=== PATIENT | female | born 1945 | race Caucasian/White ===

== ENCOUNTER 2020-07-04 11:28 | Emergency (ER) | payer MEDICARE, OTHER ==
--- NOTE | 2020-07-04 11:58 | XRAY Report ---
PROCEDURE: Chest 1 View X-Ray INDICATIONS: Chest Pain TECHNIQUE: One view of the chest was acquired. COMPARISON: None FINDINGS: Surgical changes and devices: Postoperative change of the cervical spine can be seen. Lungs and pleura: No pleural effusions or pneumothorax. Lungs are clear. Mediastinum: Mediastinal contours appear normal. Heart size is normal. Bones and chest wall: No suspicious bony lesions. Age-appropriate degenerative changes are seen. Overlying soft tissues appear unremarkable. IMPRESSION: No acute cardiopulmonary process is seen. Postoperative and degenerative changes are seen. Reviewed by: Ramirez Nguyen MD on 07/04/2020 10:56 AM ANGELA Approved by: Ramirez Nguyen MD on 07/04/2020 10:56 AM ANGELA Station ID: [id number]
[2020-07-04 12:10] LABS: BASOPHILS # (AUTO) 0.1 10^3/uL (0.0-0.1); BASOPHILS % (AUTO) 0.5 %; EOSINOPHILS # (AUTO) 0.2 10^3/uL (0.0-0.7); EOSINOPHILS % (AUTO) 1.6 %; HCT - HEMATOCRIT 32.6 % (37.0-47.0); HGB - HEMOGLOBIN 10.3 g/dL (12.0-16.0); LYMPHOCYTES # (AUTO) 1.3 10^3/uL (1.5-3.5); LYMPHOCYTES % (AUTO) 11.9 %; MEAN CORPUSCULAR HEMOGLOBIN 31.8 pg (27.0-31.0); MEAN CORPUSCULAR HGB CONC 31.6 g/dL (32.0-36.0); MEAN CORPUSCULAR VOLUME 100.6 fL (81.0-99.0); MEAN PLATELET VOLUME 9.9 fL (7.9-10.8); MONOCYTES # (AUTO) 0.5 10^3/uL (0.0-1.0); MONOCYTES % (AUTO) 4.7 %; NEUTROPHILS # (AUTO) 8.6 10^3/uL (1.5-6.6); NEUTROPHILS % (AUTO) 81.1 %; PLT - PLATELET COUNT 379 10^3/uL (130-450); RED BLOOD COUNT 3.24 10^6/uL (4.20-5.40); RED CELL DISTRIBUTION WIDTH 12.2 % (12.0-15.0); WHITE BLOOD COUNT 10.6 x10^3/uL (4.8-10.8)
[2020-07-04 12:32] LABS: ALBUMIN 4.2 g/dL (3.2-5.5); ALBUMIN/GLOBULIN RATIO 1.1 (1.0-2.2); BILIRUBIN,TOTAL 0.6 mg/dL (0.2-1.0); CALCIUM 10.9 mg/dL (8.5-10.3); CREATININE 1.1 mg/dL (0.4-1.0); POTASSIUM 3.9 mmol/L (3.5-5.0); TOTAL PROTEIN 8.1 g/dL (6.7-8.2)
[2020-07-04] MEDS ORDERED: ASPIRIN 325 MG TABLET PO STA (13:02)
--- NOTE | 2020-07-04 15:01 | ED Physician Documentation ---
History of Present Illness - Stated complaint Stated Complaint: CHEST PX - Chief complaint Chief Complaint: Cardiac - History obtained from History obtained from: Patient - Additonal information Additional information: 74-year-old woman with past medical history of high blood pressure, hyperlipidemia, vascular dementia, mild CKD presents with midsternal chest pain intermittent for the past couple days. Her reports that she was weak and fatigued couple days ago and 2 nights ago she had severe chest pain, Rating to left arm and neck, associated with nausea and diaphoresis. It waned and then returned today. currently mild. 5 years ago she had a nuclear stress test that was negative. They moved from [place] just recently where she saw a rock dust sprayer. Review of Systems Ten Systems: 10 systems reviewed and negative Constitutional: denies: Fever, Chills Cardiac: reports: Chest pain / pressure Respiratory: denies: Dyspnea, Cough GI: reports: Nausea PD PAST MEDICAL HISTORY - Past Medical History Past Medical History: Yes Cardiovascular: Hypertension, High cholesterol Neuro: Dementia Musculoskeletal: Chronic back pain - Past Surgical History Past Surgical History: Yes Ortho: Spine surgery - Present Medications Home Medications: Ambulatory Orders Medication Instructions Recorded Confirmed Ezetimibe [Zetia] 10 mg DAILY 07/04/20 07/04/20 HYDROcod/ACETAM 5/325 [[place] 5/325] 1 tab TID 07/04/20 07/04/20 Isosorbide Mononitrate ER [Imdur] 30 mg DAILY 07/04/20 07/04/20 Lisinopril [Prinivil] 10 mg PO DAILY 07/04/20 07/04/20 Simvastatin [Zocor] 40 mg DAILY 07/04/20 07/04/20 amLODIPine [Norvasc] 5 mg DAILY 07/04/20 07/04/20 - Allergies Allergies/Adverse Reactions: Allergies Allergy/AdvReac Type Severity Reaction Status Date / Time No Known Drug Allergies Allergy Verified 07/04/20 11:39 - Social History Does the pt smoke?: No Smoking Status: Never smoker Does the pt drink ETOH?: No Does the pt have substance abuse?: No PD ED PE NORMAL - Vitals Vital signs reviewed: Yes - General General: Alert and oriented X 3, No acute distress, Well developed/nourished - HEENT HEENT: Atraumatic, PERRL, EOMI - Neck Neck: Supple, no meningeal sign - Cardiac Cardiac: RRR - Respiratory Respiratory: No respiratory distress, Clear bilaterally - Abdomen Abdomen: Non tender, Non distended - Female Female : Deferred - Rectal Rectal: Deferred - Derm Derm: Normal color, Warm and dry - Extremities Extremities: No deformity - Neuro Neuro: Alert and oriented X 3 - Psych Psych: Normal mood, Normal affect Results - Vitals Vitals: Vital Signs - 24 hr 07/04/20 07/04/20 11:35 14:20 Temperature 36.6 C Heart Rate 82 73 Respiratory 16 16 Rate Blood Pressure 168/74 H 145/100 H O2 Saturation 97 97 Oxygen O2 Source Room air - Labs Labs: Laboratory Tests 07/04/20 07/04/20 07/04/20 11:57 11:57 11:57 WBC 10.6 RBC 3.24 L Hgb 10.3 L Hct 32.6 L MCV 100.6 H MCH 31.8 H MCHC 31.6 L RDW 12.2 Plt Count 379 MPV 9.9 Neut # (Auto) 8.6 H Lymph # (Auto) 1.3 L [place] # (Auto) 0.5 Eos # (Auto) 0.2 Baso # (Auto) 0.1 Absolute Nucleated RBC 0.00 Nucleated RBC % 0.0 Sodium 142 Potassium 3.9 Chloride 100 L Carbon Dioxide 28 Anion Gap 14.0 H BUN 25 H Creatinine 1.1 H Estimated GFR (MDRD) 48 L Glucose 112 H Calcium 10.9 H Total Bilirubin 0.6 AST 22 ALT 21 Alkaline Phosphatase 87 Troponin I High Sens 6.6 Total Protein 8.1 Albumin 4.2 Globulin 3.9 Albumin/Globulin Ratio 1.1 Lipase 33 07/04/20 13:26 WBC RBC Hgb Hct MCV MCH MCHC RDW Plt Count MPV Neut # (Auto) Lymph # (Auto) [place] # (Auto) Eos # (Auto) Baso # (Auto) Absolute Nucleated RBC Nucleated RBC % Sodium Potassium Chloride Carbon Dioxide Anion Gap BUN Creatinine Estimated GFR (MDRD) Glucose Calcium Total Bilirubin AST ALT Alkaline Phosphatase Troponin I High Sens 6.7 Total Protein Albumin Globulin Albumin/Globulin Ratio Lipase PD MEDICAL DECISION MAKING - ED course ED course: d/w Dr Garcia, rock dust sprayer at [facility] who accepts the patient in transfer for stress testing. will d/w hospitalist. Departure - Departure Disposition: 02 Transfer Acute Care Hosp Clinical Impression: Chest pain
[2020-07-04 16:40] LABS: B. PARAPERTUSSIS- RESP PCR PAN NOT DETECTED; B. PERTUSSIS- RESP PCR PANEL NOT DETECTED; C. PNEUMONIAE- RESP PCR PANEL NOT DETECTED; CORONAVIRUS 229E-RESP PCR NOT DETECTED; CORONAVIRUS HKU1-RESP PCR NOT DETECTED; CORONAVIRUS NL63-RESP PCR NOT DETECTED; CORONAVIRUS OC43-RESP PCR NOT DETECTED; HUMAN METAPNEUMOVIRUS NOT DETECTED; INFLUENZA A- RESP PCR PANEL NOT DETECTED; INFLUENZA B - RESP PCR PANEL NOT DETECTED; M. PNEUMONIAE- RESP PCR PANEL NOT DETECTED; PARAINFLUENZA VIRUS 1 NOT DETECTED; PARAINFLUENZA VIRUS 2 NOT DETECTED; PARAINFLUENZA VIRUS 3 NOT DETECTED; PARAINFLUENZA VIRUS 4 NOT DETECTED; RHINOVIRUS/ENTEROVIRUS NOT DETECTED; RSV- RESP PCR PANEL NOT DETECTED; SARS-CoV-2 -RESP PCR PANEL NOT DETECTED
[2020-07-04 17:57] VITALS: BP 127/89
== END 2020-07-04 18:32 | disposition short-term general hospital (02) ==
LOC: ED 11:28
DX: R07.89 Other chest pain (principal); M54.2 Cervicalgia; R53.1 Weakness; Z20.822 Contact with and (suspected) exposure to COVID-19; I12.9 Hypertensive chronic kidney disease with stage 1 through stage 4 chronic kidney disease, or unspecified chronic kidney disease; N18.9 Chronic kidney disease, unspecified; E78.5 Hyperlipidemia, unspecified; I44.4 Left anterior fascicular block; F01.50 Vascular dementia, unspecified severity, without behavioral disturbance, psychotic disturbance, mood disturbance, and anxiety
CPT/HCPCS: 36415; 71045; 80053; 83690; 84484; 85025; 87631; 93005; 99284; 99285; A9270; 0202U

== ENCOUNTER 2020-07-04 18:30 | Outpatient (CLI) | payer MEDICARE, OTHER | END 2020-07-04 18:31 | disposition short-term general hospital (02) | LOC: EMS 18:30 | PROVIDERS: ATTEND Emergency Medicine | DX: R07.9 Chest pain, unspecified (principal) | CPT/HCPCS: A0425; A0428 ==

== ENCOUNTER 2020-07-14 19:09 | Outpatient (CLI) | payer MEDICARE, OTHER | END 2020-07-14 19:10 | disposition critical access hospital (66) | LOC: EMS 19:09 | DX: R10.10 Upper abdominal pain, unspecified (principal); R11.0 Nausea | CPT/HCPCS: A0425; A0429 ==

== ENCOUNTER 2020-07-14 19:24 | Inpatient (IN) | payer MEDICARE, OTHER ==
[2020-07-14 19:42] LABS: BASOPHILS # (AUTO) 0.1 10^3/uL (0.0-0.1); BASOPHILS % (AUTO) 0.5 %; EOSINOPHILS # (AUTO) 0.1 10^3/uL (0.0-0.7); EOSINOPHILS % (AUTO) 1.5 %; HCT - HEMATOCRIT 23.3 % (37.0-47.0); HGB - HEMOGLOBIN 7.4 g/dL (12.0-16.0); LYMPHOCYTES # (AUTO) 1.3 10^3/uL (1.5-3.5); LYMPHOCYTES % (AUTO) 13.5 %; MEAN CORPUSCULAR HEMOGLOBIN 31.8 pg (27.0-31.0); MEAN CORPUSCULAR HGB CONC 31.8 g/dL (32.0-36.0); MEAN PLATELET VOLUME 9.8 fL (7.9-10.8); MONOCYTES # (AUTO) 0.7 10^3/uL (0.0-1.0); MONOCYTES % (AUTO) 6.8 %; NEUTROPHILS # (AUTO) 7.5 10^3/uL (1.5-6.6); NEUTROPHILS % (AUTO) 77.2 %; PLT - PLATELET COUNT 506 10^3/uL (130-450); RED BLOOD COUNT 2.33 10^6/uL (4.20-5.40); RED CELL DISTRIBUTION WIDTH 13.3 % (12.0-15.0); WHITE BLOOD COUNT 9.7 x10^3/uL (4.8-10.8)
[2020-07-14 19:57] LABS: ALBUMIN 3.7 g/dL (3.2-5.5); BILIRUBIN,TOTAL 0.3 mg/dL (0.2-1.0); CALCIUM 9.9 mg/dL (8.5-10.3); CREATININE 0.9 mg/dL (0.4-1.0); POTASSIUM 4.1 mmol/L (3.5-5.0); TOTAL PROTEIN 7.3 g/dL (6.7-8.2)
--- NOTE | 2020-07-14 20:05 | ED Physician Documentation ---
PD HPI ABD PAIN - Stated complaint Stated Complaint: ABD PX - Chief complaint Chief Complaint: Abd Pain - History obtained from History obtained from: Patient, EMS - History of Present Illness Timing - onset: How many days ago (several) Timing - duration: Days (several) Pain level max: 9 Pain level now: 9 Location: RUQ, Epigastric, LUQ Associated symptoms: Nausea, Vomiting. No: Hematemesis, Diarrhea, Constipation, Melena, Hematochezia, Dysuria, Hematuria, Chest pain, Dizzy Recently seen: Emergency Dept, Admitted (for chest pain) - Additional information Additional information: Is a 74-year-old female with a past medical history of dementia who presents to the emergency department with several days of abdominal pain per EMS. They report that family stated it worsened tonight. She had vomiting tonight as well. She rates the pain as a 9 out of 10. Unable to describe the pain any further including the character of the pain. She does point to her epigastric and right upper quadrant and left upper quadrant area as the site of the pain. Unable to tell me if it radiates or not. Nothing makes it better or worse. No hematemesis, diarrhea or constipation. She does not know if there has been any b lood in her stool or not. She was recently admitted to [facility] after being transferred here for chest pain about 10 days ago. Review of Systems Unable to obtain: Dementia Constitutional: denies: Fever GI: reports: Vomiting. denies: Diarrhea Skin: denies: Rash Musculoskeletal: denies: Neck pain, Back pain Neurologic: denies: Headache PD PAST MEDICAL HISTORY - Past Medical History Past Medical History: Yes Cardiovascular: Hypertension, High cholesterol Neuro: Dementia Musculoskeletal: Chronic back pain - Past Surgical History Past Surgical History: Yes Ortho: Spine surgery - Present Medications Home Medications: Ambulatory Orders Medication Instructions Recorded Confirmed Ezetimibe [Zetia] 10 mg DAILY 07/04/20 07/14/20 HYDROcod/ACETAM 5/325 [[facility] 5/325] 1 tab TID 07/04/20 07/14/20 Isosorbide Mononitrate ER [Imdur] 30 mg DAILY 07/04/20 07/14/20 Lisinopril [Prinivil] 10 mg PO DAILY 07/04/20 07/14/20 Simvastatin [Zocor] 40 mg DAILY 07/04/20 07/14/20 amLODIPine [Norvasc] 5 mg DAILY 07/04/20 07/14/20 Metoprolol Succinate [Toprol Xl] 25 mg PO DAILY 07/14/20 07/14/20 - Allergies Allergies/Adverse Reactions: Allergies Allergy/AdvReac Type Severity Reaction Status Date / Time No Known Drug Allergies Allergy Verified 07/14/20 19:29 - Social History Does the pt smoke?: No Smoking Status: Never smoker Does the pt drink ETOH?: No Does the pt have substance abuse?: No - Immunizations Immunizations are current?: Yes PD ED PE NORMAL - Vitals Vital signs reviewed: Yes - General General: Other (alert, pleasant, oriented to person only) - HEENT HEENT: Moist mucous membranes - Neck Neck: Supple, no meningeal sign - Cardiac Cardiac: RRR, Strong equal pulses - Respiratory Respiratory: No respiratory distress, Clear bilaterally - Abdomen Abdomen: Soft, Other (TTP RUQ, + junior's sign.) - Back Back: No CVA TTP, No spinal TTP - Derm Derm: Warm and dry - Extremities Extremities: No calf tenderness / cord - Neuro Neuro: Other (alert, pleasant) Results - Vitals Vitals: Vital Signs - 24 hr 07/14/20 07/14/20 07/14/20 19:29 19:31 20:53 Temperature 37.1 C 37.1 C 37.1 C Heart Rate 77 77 91 Respiratory 16 16 16 Rate Blood Pressure 117/68 117/68 159/65 H O2 Saturation 100 99 96 Oxygen O2 Source Room air - Labs Labs: Laboratory Tests 07/14/20 07/14/20 07/14/20 19:38 19:38 20:01 WBC 9.7 RBC 2.33 L Hgb 7.4 L Hct 23.3 L MCV 100.0 H MCH 31.8 H MCHC 31.8 L RDW 13.3 Plt Count 506 H MPV 9.8 Neut # (Auto) 7.5 H Lymph # (Auto) 1.3 L [place] # (Auto) 0.7 Eos # (Auto) 0.1 Baso # (Auto) 0.1 Absolute Nucleated RBC 0.00 Nucleated RBC % 0.0 Sodium 140 Potassium 4.1 Chloride 101 Carbon Dioxide 27 Anion Gap 12.0 BUN 23 H Creatinine 0.9 Estimated GFR (MDRD) 61 L Glucose 117 H Calcium 9.9 Total Bilirubin 0.3 AST 18 ALT 21 Alkaline Phosphatase 78 Total Protein 7.3 Albumin 3.7 Globulin 3.6 Albumin/Globulin Ratio 1.0 Lipase 150 H Urine Color YELLOW Urine Clarity HAZY Urine pH 7.0 Ur Specific [place] 1.015 Urine Protein NEGATIVE Urine Glucose (UA) NEGATIVE Urine Ketones NEGATIVE Urine Occult Blood NEGATIVE Urine Nitrite NEGATIVE Urine Bilirubin NEGATIVE Urine Urobilinogen 0.2 (NORMAL) Ur Leukocyte Esterase TRACE H Urine RBC 0-5 Urine WBC 6-10 H Ur Squamous Epith Cells NONE SEEN Amorphous Sediment Few Urine Bacteria Rare Ur Microscopic Review INDICATED Urine Culture Comments INDICATED - Rads (name of study) CT abd/pelvis Radiology: Prelim report reviewed, EMP read contemporaneously PD MEDICAL DECISION MAKING - ED course Complexity details: reviewed results, re-evaluated patient, considered differential, d/w patient ED course: 74-year-old female with acute cholecystitis. She also has a significant drop in her hemoglobin. Rectal exam was performed but no stools in the rectal vault. She was given a dose of Protonix as well as Zosyn. We will admit for acute cholecystitis and anemia. Her records were obtained from [facility] for her recent admission. She had a normal echocardiogram and nuclear medicine stress test at that time. Discussed the case with Dr. Rowland, general surgery who will consult on the patient. Also discussed with Dr. Shoemaker, hospitalist who accepts. The plan will be likely colonoscopy and endoscopy tomorrow with a likely cholecystectomy on . This document was made in part using voice recognition software. While efforts are made to proofread this document, sound alike and grammatical errors may occur. IMPRESSION: 1. Sludge material and stones are seen in dependent portion of gallbladder lumen with gallbladder wall thickening and pericholecystic fluid concerning for acute cholecystitis. No biliary ductal dilatation. 2. Wall thickening involving distal portion of stomach and proximal to mid portion of duodenum adjacent to the inflamed appearing gallbladder most likely represent reactive inflammatory changes. Low-grade gastritis and enteritis cannot be excluded. No other area of abnormal bowel wall thickening. No free fluid of free air. No abscess collection. 3. No renal stone or hydronephrosis. 4. Right lateral abdominal wall defect containing fat only. Departure - Departure Disposition: [facility] DC/Xfer Clinical Impression: Acute cholecystitis Anemia Qualifiers: Anemia type: unspecified type Qualified Code(s): D64.9 - Anemia, unspecified Abdominal pain Qualifiers: Abdominal location: right lower quadrant Qualified Code(s): R10.31 - Right lower quadrant pain Condition: Stable
[2020-07-14] MEDS ORDERED: IOPAMIDOL-300 100 ML VIAL ONE (20:16)
[2020-07-14 20:19] LABS: BILIRUBIN,URINE NEGATIVE (NEGATIVE); GLUCOSE, URINE (UA) NEGATIVE (NEGATIVE); KETONES,URINE (UA) NEGATIVE (NEGATIVE); LEUKOCYTE ESTERASE, URINE TRACE (NEGATIVE); NITRITE,URINE NEGATIVE (NEGATIVE); OCCULT BLOOD,URINE NEGATIVE (NEGATIVE); PROTEIN,URINE NEGATIVE (NEGATIVE); UROBILINOGEN,URINE 0.2 (NORMAL) E.U./dL (NORMAL)
[2020-07-14 20:21] LABS: CLARITY,URINE HAZY (CLEAR)
[2020-07-14 20:31] LABS: RBC,URINE 0-5 /HPF (0-5); SQUAMOUS EPITHELIAL CELL,UR NONE SEEN (<= Few)
[2020-07-14 20:32] LABS: AMORPHOUS SEDIMENT,UR Few /LPF; BACTERIA,URINE Rare /HPF (None Seen)
[2020-07-14] MEDS ORDERED: IOPAMIDOL-300 100 ML VIAL IVP ONE (20:54)
--- NOTE | 2020-07-14 21:13 | CT Report ---
PROCEDURE: Abdomen/Pelvis W INDICATIONS: abdominal pain, dementia, vomiting CONTRAST: IV CONTRAST: Isovue 300 ml: 100 PO CONTRAST: *NO PO CONTRAST TECHNIQUE: After the administration of IV contrast, 5 mm thick sections acquired from the diaphragms to the symp hysis. 5 mm thick coronal and sagittal reformats were acquired. For radiation dose reduction, the f ollowing was used: automated exposure control, adjustment of mA and/or kV according to patient size. COMPARISON: None. FINDINGS: Image quality: Excellent. ABDOMEN: Lung bases: Bibasilar dependent atelectasis is seen. Heart size is normal. Solid organs: Liver and spleen are normal in size and enhancement. Sludge material and stones are se en in dependent portion of gallbladder lumen. There is suggestion of pericholecystic fluid and mild g allbladder wall thickening. Biliary system is non dilated. Pancreas enhances normally. No adrenal n odules. Kidneys demonstrate normal size and enhancement, without hydronephrosis. Peritoneum and bowel: There is no bowel obstruction. There is suggestion of distal gastric wall thick ening and wall thickening involving proximal to mid portion of duodenum with edema. No other area of abnormal bowel wall thickening. No free fluid of free air. No abscess collection. Nodes and vessels: No retroperitoneal or mesenteric adenopathy by size criteria. Aorta and inferior vena cava are normal in size. Miscellaneous: Right lateral abdominal wall defect is seen containing fat only. PELVIS: Genitourinary: Bladder wall thickness is normal. Miscellaneous: No inguinal hernias or adenopathy. Uterus and bilateral adnexa show no gross abnorma lity. Bones: No suspicious bony lesions. No vertebral body compression fractures. Post fusion changes ar e noted in lumbar spine at L3-L5 levels. Degenerative disc disease throughout lumbar spine is seen. IMPRESSION: 1. Sludge material and stones are seen in dependent portion of gallbladder lumen with gallbladder wal l thickening and pericholecystic fluid concerning for acute cholecystitis. No biliary ductal dilatati on. 2. Wall thickening involving distal portion of stomach and proximal to mid portion of duodenum adjace nt to the inflamed appearing gallbladder most likely represent reactive inflammatory changes. Low-gra de gastritis and enteritis cannot be excluded. No other area of abnormal bowel wall thickening. No fr ee fluid of free air. No abscess collection. 3. No renal stone or hydronephrosis. 4. Right lateral abdominal wall defect containing fat only. Reviewed by: Reynold Tabor MD on 07/14/2020 9:12 PM PDT Approved by: Reynold Tabor MD on 07/14/2020 9:12 PM PDT Station ID: [id number]
[2020-07-14] MEDS ORDERED: PIPERACILLIN/TAZOBACTAM 3.375 GM in SODIUM CHLORIDE 0.9% MINIBAG 100 ML IV STA (21:18)
[2020-07-14] MEDS ORDERED: PANTOPRAZOLE 40 MG VIAL IVP STA (21:19)
[2020-07-14] MEDS ORDERED: ACETAMINOPHEN 325 MG TABLET PO PRN (21:34)
[2020-07-14] MEDS ORDERED: HYDROcod/ACETAM 5/325 MG TABLET PO PRN (21:34)
[2020-07-14] MEDS ORDERED: ONDANSETRON 4 MG/2 ML VIAL IVP PRN (21:34)
[2020-07-14] MEDS ORDERED: SODIUM CHLORIDE 0.9% 1,000 ML IV SCH (22:00)
[2020-07-14 22:03] LABS: B. PARAPERTUSSIS- RESP PCR PAN NOT DETECTED; B. PERTUSSIS- RESP PCR PANEL NOT DETECTED; C. PNEUMONIAE- RESP PCR PANEL NOT DETECTED; CORONAVIRUS 229E-RESP PCR NOT DETECTED; CORONAVIRUS HKU1-RESP PCR NOT DETECTED; CORONAVIRUS NL63-RESP PCR NOT DETECTED; CORONAVIRUS OC43-RESP PCR NOT DETECTED; HUMAN METAPNEUMOVIRUS NOT DETECTED; INFLUENZA A- RESP PCR PANEL NOT DETECTED; INFLUENZA B - RESP PCR PANEL NOT DETECTED; M. PNEUMONIAE- RESP PCR PANEL NOT DETECTED; PARAINFLUENZA VIRUS 1 NOT DETECTED; PARAINFLUENZA VIRUS 2 NOT DETECTED; PARAINFLUENZA VIRUS 3 NOT DETECTED; PARAINFLUENZA VIRUS 4 NOT DETECTED; RHINOVIRUS/ENTEROVIRUS NOT DETECTED; RSV- RESP PCR PANEL NOT DETECTED; SARS-CoV-2 -RESP PCR PANEL NOT DETECTED
[2020-07-14] MEDS ORDERED: HYDROmorphone 1 MG/ML CARPUJECT IVP PRN (22:12)
--- NOTE | 2020-07-14 22:18 | HISTORY & PHYSICAL EXAMINATION ---
Chief Complaint - Chief Complaint Chief Complaint: Abdominal Pain Abdominal Pain HPI - Admitted From Admitted from: ED - History Obtained From Records Reviewed: RN notes reviewed, Old records reviewed History obtained from: Patient Exam limitations: Clinical condition, Other (Mild Dementia) - History of Present Illness Severity at the worst: Moderate Pain Quality: Aching, Other (Patient was not able to specifiy) Context-Pain started w/: Other (Unknown (Limited hx 2/2 dementia)) Duration: Days: (2) Improved with: Other (Unknown) Associated symptoms: Nausea, Vomiting, General Weakness HPI Comment/Other: Lidna is a very pleasant 74-year-old female with mild dementia, and presumably some cardiac history including hypertension and possibly angina based on her medication list, but is unable to provide much history, who is at least able to tell me that she presents to the ED with abdominal pain since the past 2 days. She is unable to characterize the abdominal pain very much in terms of quality, location, exacerbating and alleviating factors, or severity. This is somewhat limited by her dementia. She does however clearly confirm when asked that she has had vomiting though she denies any recollection of coffee-ground emesis, or black. She also denies any melena or bright red blood per rectum. She does not think she is had a fever. She has not had any other associated symptoms. She states this has never happened to her before. ED course: In the emergency department she was evaluated for the symptoms including labs and a CT scan of the abdomen and pelvis that was suggestive of acute cholecystitis with lab work showing mild anemia with hemoglobin of 7.6, with macrocytosis, normal RDW, normal renal function, and no leukocytosis. Her urinalysis is also suggestive of a UTI. Her vital signs were stable in the ED. Upon arrival to examine the patient, she was found to be undergoing abdominal sonography. General surgery had been contacted prior to my involvement, who has kindly agreed to consult on the patient and suggest a probable EGD, colonoscopy, as well as possible laparoscopic cholecystectomy for the acute cholecystitis based on ultrasound results. PMH/PSH - Past Medical History Cardiovascular: positive: Hypertension, High cholesterol Neuro: positive: Dementia Musculoskeletal: positive: Chronic back pain - Past Surgical History Ortho: positive: Spine surgery Neuro: positive: Other (Patient tells me she's had brain surgery, twice, but can't tell me much more about them) Social & Family Hx - Living Situation Living Arrangement: At home (Unclear if she lives at home or in facility) Living Situation: With spouse/s.o. - Social History Does the pt smoke?: No Smoking Status: Never smoker Does the pt drink ETOH?: No Does the pt have substance abuse?: No - Family History Family History Comment/Other: Unable to provide FH Meds/Allgy - Home Medications Home Medications: Ambulatory Orders Medication Instructions Recorded Confirmed Ezetimibe [Zetia] 10 mg DAILY 07/04/20 07/14/20 HYDROcod/ACETAM 5/325 [[place] 5/325] 1 tab TID 07/04/20 07/14/20 Isosorbide Mononitrate ER [Imdur] 30 mg DAILY 07/04/20 07/14/20 Lisinopril [Prinivil] 10 mg PO DAILY 07/04/20 07/14/20 Simvastatin [Zocor] 40 mg DAILY 07/04/20 07/14/20 amLODIPine [Norvasc] 5 mg DAILY 07/04/20 07/14/20 Metoprolol Succinate [Toprol Xl] 25 mg PO DAILY 07/14/20 07/14/20 - Allergies Allergies/Adverse Reactions: Allergies Allergy/AdvReac Type Severity Reaction Status Date / Time No Known Drug Allergies Allergy Verified 07/14/20 19:29 Review of Systems - Constitutional Constitutional: reports: Fatigue, Malaise, Weakness, Poor appetite - Gastrointestinal Gastrointestinal: reports: Abdominal pain, Abdominal distention, Nausea, Vomiting, Bloating. denies: Constipation, Diarrhea, Change in bowel habits, Rectal bleeding, Black stools, Bloody stools, Bile emesis, Veto blood emesis, Coffee grounds emesis - Genitourinary Genitourinary: reports: Dysuria - All Other Systems All Other Systems: reports: Reviewed and negative Prior Level of Functionality: Lives with . When asked if she lives in a home or in a intermediate, she tells me "I got sick in [place]". I ask if she lives in a intermediate now, and she tells me yes. Exam - Vital Signs Reviewed Vital Signs: Yes Vital Signs: Vital Signs x48h Temp Pulse Resp BP Pulse Ox 07/14/20 22:00 37.1 C 83 17 155/67 H 99 07/14/20 20:53 37.1 C 91 16 159/65 H 96 07/14/20 19:31 37.1 C 77 16 117/68 99 07/14/20 19:29 37.1 C 77 16 117/68 100 - Physical Exam General Appearance: positive: No acute distress, Alert Eyes Bilateral: positive: Normal inspection, EOMI ENT: positive: No signs of dehydration Neck: positive: Nml inspection Respiratory: positive: Chest non-tender, Breath sounds nml Cardiovascular: positive: Irregularly irregular, Extrasystoles Peripheral Pulses: positive: 2+ Abdomen: positive: Tenderness (TTP RUQ, + Hughes's, Bowel Sounds hypoactive) Skin: positive: Color nml, No rash, Warm, Dry Extremities: positive: Non-tender, Nml appearance, No pedal edema Neurologic/Psychiatric: positive: Motor nml, Sensation nml, Mood/affect nml, Disoriented to place, Other (Mildly confused, occasional blank responses to questions, but very pleasant and at times lucid). negative: Disoriented to person, Disoriented to time, Sensory loss, Depressed mood/affect Results - Lab Results Lab results reviewed: Yes Fish Bones: 07/14/20 19:38 07/14/20 19:38 Other Lab Results: Lab Results x24hrs 07/14/20 07/14/20 07/14/20 Range/Units 21:37 20:58 20:01 WBC (4.8-10.8) x10^3/uL RBC (4.20-5.40) 10^6/uL Hgb (12.0-16.0) g/dL Hct (37.0-47.0) % MCV (81.0-99.0) fL MCH (27.0-31.0) pg MCHC (32.0-36.0) g/dL RDW (12.0-15.0) % Plt Count (130-450) 10^3/uL MPV (7.9-10.8) fL Neut # (Auto) (1.5-6.6) 10^3/uL Lymph # (Auto) (1.5-3.5) 10^3/uL Sandoval # (Auto) (0.0-1.0) 10^3/uL Eos # (Auto) (0.0-0.7) 10^3/uL Baso # (Auto) (0.0-0.1) 10^3/uL Absolute Nucleated RBC x10^3/uL Nucleated RBC % /100WBC Sodium (135-145) mmol/L Potassium (3.5-5.0) mmol/L Chloride (101-111) mmol/L Carbon Dioxide (21-32) mmol/L Anion Gap (6-13) BUN (6-20) mg/dL Creatinine (0.4-1.0) mg/dL Estimated GFR (MDRD) (>89) Glucose (70-100) mg/dL Lactic Acid 1.0 (0.5-2.2) mmol/L Calcium (8.5-10.3) mg/dL Total Bilirubin (0.2-1.0) mg/dL AST (10-42) IU/L ALT (10-60) IU/L Alkaline Phosphatase (42-121) IU/L Total Protein (6.7-8.2) g/dL Albumin (3.2-5.5) g/dL Globulin (2.1-4.2) g/dL Albumin/Globulin Ratio (1.0-2.2) Lipase (22-51) U/L Urine Color YELLOW Urine Clarity HAZY (CLEAR) Urine pH 7.0 (5.0-7.5) PH Ur Specific Hepzibah 1.015 (1.002-1.030) Urine Protein NEGATIVE (NEGATIVE) mg/dL Urine Glucose (UA) NEGATIVE (NEGATIVE) mg/dL Urine Ketones NEGATIVE (NEGATIVE) mg/dL Urine Occult Blood NEGATIVE (NEGATIVE) Urine Nitrite NEGATIVE (NEGATIVE) Urine Bilirubin NEGATIVE (NEGATIVE) Urine Urobilinogen 0.2 (NORMAL) (NORMAL) E.U./dL Ur Leukocyte Esterase TRACE H (NEGATIVE) Urine RBC 0-5 (0-5) /HPF Urine WBC 6-10 H (0-5) /HPF Ur Squamous Epith Cells NONE SEEN (<= Few) Amorphous Sediment Few /LPF Urine Bacteria Rare (None Seen) /HPF Ur Microscopic Review INDICATED Urine Culture Comments INDICATED Nasal Adenovirus (PCR) NOT DETECTED Nasal B. parapertussis DNA (PCR) NOT DETECTED Nasal Coronavir 229E PCR NOT DETECTED Nasal Coronavir HKU1 PCR NOT DETECTED Nasal Coronavir NL63 PCR NOT DETECTED Nasal Coronavir OC43 PCR NOT DETECTED Nasal Enterovir/Rhinovir PCR NOT DETECTED Nasal Influenza B PCR NOT DETECTED Nasal Influenza A PCR NOT DETECTED Nasal Parainfluen 1 PCR NOT DETECTED Nasal Parainfluen 2 PCR NOT DETECTED Nasal Parainfluen 3 PCR NOT DETECTED Nasal Parainfluen 4 PCR NOT DETECTED Nasal RSV (PCR) NOT DETECTED Nasal B.pertussis DNA PCR NOT DETECTED Nasal C.pneumoniae (PCR) NOT DETECTED Ramin Human Metapneumo PCR NOT DETECTED Nasal M.pneumoniae (PCR) NOT DETECTED Nasal SARS-CoV-2 (PCR) NOT DETECTED 07/14/20 07/14/20 Range/Units 19:38 19:38 WBC 9.7 (4.8-10.8) x10^3/uL RBC 2.33 L (4.20-5.40) 10^6/uL Hgb 7.4 L (12.0-16.0) g/dL Hct 23.3 L (37.0-47.0) % MCV 100.0 H (81.0-99.0) fL MCH 31.8 H (27.0-31.0) pg MCHC 31.8 L (32.0-36.0) g/dL RDW 13.3 (12.0-15.0) % Plt Count 506 H (130-450) 10^3/uL MPV 9.8 (7.9-10.8) fL Neut # (Auto) 7.5 H (1.5-6.6) 10^3/uL Lymph # (Auto) 1.3 L (1.5-3.5) 10^3/uL Sandoval # (Auto) 0.7 (0.0-1.0) 10^3/uL Eos # (Auto) 0.1 (0.0-0.7) 10^3/uL Baso # (Auto) 0.1 (0.0-0.1) 10^3/uL Absolute Nucleated RBC 0.00 x10^3/uL Nucleated RBC % 0.0 /100WBC Sodium 140 (135-145) mmol/L Potassium 4.1 (3.5-5.0) mmol/L Chloride 101 (101-111) mmol/L Carbon Dioxide 27 (21-32) mmol/L Anion Gap 12.0 (6-13) BUN 23 H (6-20) mg/dL Creatinine 0.9 (0.4-1.0) mg/dL Estimated GFR (MDRD) 61 L (>89) Glucose 117 H (70-100) mg/dL Lactic Acid (0.5-2.2) mmol/L Calcium 9.9 (8.5-10.3) mg/dL Total Bilirubin 0.3 (0.2-1.0) mg/dL AST 18 (10-42) IU/L ALT 21 (10-60) IU/L Alkaline Phosphatase 78 (42-121) IU/L Total Protein 7.3 (6.7-8.2) g/dL Albumin 3.7 (3.2-5.5) g/dL Globulin 3.6 (2.1-4.2) g/dL Albumin/Globulin Ratio 1.0 (1.0-2.2) Lipase 150 H (22-51) U/L Urine Color Urine Clarity (CLEAR) Urine pH (5.0-7.5) PH Ur Specific Hepzibah (1.002-1.030) Urine Protein (NEGATIVE) mg/dL Urine Glucose (UA) (NEGATIVE) mg/dL Urine Ketones (NEGATIVE) mg/dL Urine Occult Blood (NEGATIVE) Urine Nitrite (NEGATIVE) Urine Bilirubin (NEGATIVE) Urine Urobilinogen (NORMAL) E.U./dL Ur Leukocyte Esterase (NEGATIVE) Urine RBC (0-5) /HPF Urine WBC (0-5) /HPF Ur Squamous Epith Cells (<= Few) Amorphous Sediment /LPF Urine Bacteria (None Seen) /HPF Ur Microscopic Review Urine Culture Comments Nasal Adenovirus (PCR) Nasal B. parapertussis DNA (PCR) Nasal Coronavir 229E PCR Nasal Coronavir HKU1 PCR Nasal Coronavir NL63 PCR Nasal Coronavir OC43 PCR Nasal Enterovir/Rhinovir PCR Nasal Influenza B PCR Nasal Influenza A PCR Nasal Parainfluen 1 PCR Nasal Parainfluen 2 PCR Nasal Parainfluen 3 PCR Nasal Parainfluen 4 PCR Nasal RSV (PCR) Nasal B.pertussis DNA PCR Nasal C.pneumoniae (PCR) Ramin Human Metapneumo PCR Nasal M.pneumoniae (PCR) Nasal SARS-CoV-2 (PCR) - Diagnostic Imaging Results Diagnostic Imaging Results: positive: Final report reviewed, Read independently, Read contemporaneously (Read U/S with tach as exam was being done), Other - EKG Results EKG Interpreted Independently: Yes EKG Comparison: positive: No prior EKG Sepsis Event Note (H) - Evaluation Current Stage of Sepsis: Ruled out Impression/Plan - Problem List Problem List: #Abdominal pain #Gallbladder wall thickening * Question of acute cholecystitis on CT scan * Pericholecystic fluid seen on CT scan not Appreciated by respiratory support technician nor myself * Labs not consistent of acute cholecystitis given normal alk phos, bilirubin, transaminases, WBC * We will follow-up results of abdominal ultrasound * Follow-up general surgery consult in a.m. * Patient received Zosyn in the ED, will have Rocephin due to suspected UTI which will cover abdominal infection empirically * N.p.o. * IV fluids maintenance #Abnormal urinalysis * Suspicious for UTI * Urine culture reflexed with results pending * Patient complained of dysuria * Empiric Rocephin pending cultures, transition to oral antibiotics pending sensitivities #History of chest pain * Patient was recently seen at [facility] * Was evaluated for chest pain * No official medical records available for review however there is a typed summary provided by family members * Reportedly, patient was seen for chest pain and had a stress test and EKG which were unremarkable * Medication list from that hospitalization includes Imdur and metoprolol * Resume metoprolol #Anemia, macrocytic, chronic - POA * This is likely chronic and patient herself recalls that she does have anemia * Is mentioned in the family printed documents summarizing recent hospitalizati on * Profile is not consistent with CHARLENE given macrocytosis, normal RDW, with depressed hemoglobin hematocrit * Considering this in conjunction with CT findings suggestive of gastritis, suspicious for inflammatory bowel disease versus gastric ulcer * Agree with general surgery consult for possible EGD, perhaps colonoscopy tomorrow * Keep n.p.o. pending studies and possible surgery #Mild to moderate dementia * Pleasant and very mildly confused * Able to participate in healthcare decision-making * Was able to comprehend and clearly advised me on DNR status * Continue to monitor #DVT prophylaxis * SCDs pending possible surgery #CODE STATUS * DNR Core Measures - Anticipated LOS I expect patient to be DC'd or transferred within 96 hours.: Yes - DVT/VTE - Prophylaxis VTE/DVT Device ordered at admit?: Yes VTE/DVT Prophylaxis med ordered at admit?: Yes
[2020-07-14] MEDS: SODIUM CHLORIDE FLUSH 0.9% 10 ML SYRINGE IVP PRN (23:01)
[2020-07-14] MEDS: SODIUM CHLORIDE FLUSH 0.9% 10 ML SYRINGE IVP SCH (23:33)
[2020-07-15 05:24] LABS: HCT - HEMATOCRIT 22.8 % (37.0-47.0); MEAN CORPUSCULAR HEMOGLOBIN 31.3 pg (27.0-31.0); MEAN CORPUSCULAR HGB CONC 30.7 g/dL (32.0-36.0); MEAN CORPUSCULAR VOLUME 101.8 fL (81.0-99.0); MEAN PLATELET VOLUME 9.7 fL (7.9-10.8); RED BLOOD COUNT 2.24 10^6/uL (4.20-5.40); RED CELL DISTRIBUTION WIDTH 13.5 % (12.0-15.0); WHITE BLOOD COUNT 10.4 x10^3/uL (4.8-10.8)
[2020-07-15 05:32] LABS: CALCIUM 9.5 mg/dL (8.5-10.3); POTASSIUM 4.1 mmol/L (3.5-5.0)
--- NOTE | 2020-07-15 08:16 | Ultrasound Report ---
PROCEDURE: Abdomen Limited INDICATIONS: RUQ abd pain TECHNIQUE: Real-time focused scanning was performed of the abdomen, with image documentation. COMPARISON: CT abdomen/pelvis 07/14/2020 FINDINGS: The liver appears free of mass lesion or biliary distention. The liver is not enlarged. Th e gallbladder contains multiple mobile stones in the gallbladder wall is poorly visualized but measur es approximately 2.5 mm. The common bile duct measures normal 5.9 mm. Pancreas visualized is normal. At the right kidney no hydronephrosis or nephrolithiasis is found and the renal cortical length is no rmal. IMPRESSION: Cholelithiasis, no sign of acute cholecystitis at this time. Biliary distention is not found. Reviewed by: Mark Hernandez MD on 07/15/2020 8:15 AM PDT Approved by: Mark Hernandez MD on 07/15/2020 8:15 AM PDT Station ID: [id number]
[2020-07-15] MEDS: SODIUM CHLORIDE FLUSH 0.9% 10 ML SYRINGE IVP SCH ×3 (08:58→23:57)
[2020-07-15] MEDS ORDERED: METOPROLOL SUCCINATE 25 MG TABLET PO SCH ×2 (09:00→13:30)
[2020-07-15] MEDS ORDERED: cefTRIAXone 1 GM in SODIUM CHLORIDE 0.9% MINIBAG 100 ML IV SCH (09:00)
[2020-07-15] MEDS ORDERED: PANTOPRAZOLE 40 MG VIAL IV SCH (09:00)
[2020-07-15] MEDS: SODIUM CHLORIDE 0.9% 1,000 ML IV SCH ×2 (09:05→16:33)
[2020-07-15 10:03] LABS: FECAL OCCULT BLOOD (FIT) NEGATIVE (NEGATIVE)
[2020-07-15] MEDS ORDERED: GI COCKTAIL 120 ML BOTTLE PO PRN (10:24)
[2020-07-15 10:31] LABS: ABSOLUTE RETICS # AUTO 0.13 10^6/uL (0.020-0.110); RED BLOOD COUNT 2.37 10^6/uL (4.20-5.40); RETICULOCYTE COUNT % (AUTO) 5.47 % (0.5-2.3)
[2020-07-15 10:54] LABS: % IRON SATURATION 8 % (20-50); IRON 25 ug/dL (28-170); TOTAL IRON BINDING CAPACITY 319 ug/dL (250-450); TRANSFERRIN 228 mg/dL (192-382)
[2020-07-15] MEDS ORDERED: GI COCKTAIL 120 ML BOTTLE PO ONE (11:00)
[2020-07-15 11:06] LABS: FERRITIN 22.3 ng/mL (11.0-306.8)
[2020-07-15] MEDS: FERROUS SULFATE 325 MG TABLET PO SCH (12:01)
--- NOTE | 2020-07-15 13:20 | PROVIDER PROGRESS NOTE ---
Assessment/Plan - Problem List (1) Abdominal pain Qualifiers: Abdominal location: right lower quadrant Qualified Code(s): R10.31 - Right lower quadrant pain Assessment/Plan: In exam, patient has no Hughes sign. she report her abdominal pain is subsided. His abdominal pain located in the middle upper Quadrant. Ultrasound show Cholelithiasis, No sign of active cholecystitis at this time. CT of [place] show distal of the stomach and proximal of the duodenal suggestion inflammation, although also concerning of acute cholecystitis. It is more likely gastritis or inflammation of gastric not acute Cholecystitis. pt has severe anemia, pt did not take blood thinner at home, pt had sightly elevated BUN. Consult with GI surgeon, plan to have EGD done on today. continue Protonix IV, and add GI cocktail NPO with IVF. (2) Anemia Qualifiers: Anemia type: unspecified type Qualified Code(s): D64.9 - Anemia, unspecified Assessment/Plan: pt's HGB is 7.0 today, pt had 10.3 about 10 days ago. pt's occult blood stool test is negative. anemia study show Mild iron deficiency. Patient had slightly elevated BUN. We will transfusion 1 unit of blood for patient, continue H&H, consult with GI, plan to have EGD for pt. order iron pill, continue IV of proton ix, plan: pt may need colonoscopy if EGD is unremarkable, and patient continue to have hemoglobin drop (3) HTN (hypertension) Assessment/Plan: stable, will resume her home meds (4) HLD (hyperlipidemia) Assessment/Plan: will resume home meds - Current Meds Current Meds: Current Medications Generic Name Dose Route Start Last Admin Trade Name Juana PRN Reason Stop Dose Admin Ferrous Sulfate 325 mg 07/15/20 12:00 07/15/20 12:01 Ferrous Sulfate 325 Mg Tablet PO 325 mg DAILYWM SANYA Administration Ceftriaxone Sodium 1 gm/ 100 mls @ 200 mls/hr 07/15/20 09:00 07/15/20 09:35 Sodium Chloride IV Infused DAILY SANYA Infusion Sodium Chloride 1,000 mls @ 83.3 mls/hr 07/15/20 08:24 07/15/20 12:57 Normal Saline 0.9% IV 07/16/20 08:24 83.3 mls/hr .Q12H1M SANYA Infusion Metoprolol Succinate 25 mg 07/15/20 09:00 07/15/20 08:58 Metoprolol Succinate 25 Mg Tablet PO 25 mg DAILY SANYA Administration Pantoprazole Sodium 40 mg 07/15/20 09:00 07/15/20 08:58 Pantoprazole 40 Mg Vial IV 40 mg DAILY SANYA Administration Sodium Chloride 10 ml 07/14/20 21:34 07/14/20 23:01 Sodium Chloride Flush 0.9% 10 Ml Syringe IVP 10 ml PRN PRN Administration NEEDED PER PROVIDER ORDERS Sodium Chloride 10 ml 07/15/20 01:00 07/15/20 08:58 Sodium Chloride Flush 0.9% 10 Ml Syringe IVP 10 ml 0100,0900,1700 SANYA Administration - Lab Result Fish Bone Diagrams: 07/15/20 05:20 07/15/20 05:20 - Additional Planning My Orders: My Active Orders 07/15/20 General Surgery Consult [CONS] Routine 07/15/20 08:21 Transfuse RBCs Leukoreduced [RC] .ONCE 07/15/20 08:24 Sodium Chloride 0.9% [Normal Saline 0.9%] 1,000 ml IV 83.3 mls/hr 07/15/20 10:16 LDH - LACTATE DEHYDROGENASE [CHEM] Routine 07/15/20 10:24 Gi Cocktail 30 ml PO Q4H PRN 07/15/20 12:00 Ferrous Sulfate [Feosol] 325 mg PO DAILYWM 07/15/20 17:00 Saccharomyces Boulardii [Florastor] 250 mg PO BIDWM Subjective - Subjective Patient Reports: Feeling Better Objective Vital Signs: Vital Signs - 24 hr 07/14/20 07/14/20 07/14/20 19:29 19:31 20:53 Temperature 37.1 C 37.1 C 37.1 C Heart Rate 77 77 91 Heart Rate [ Brachial] Respiratory 16 16 16 Rate Blood Pressure 117/68 117/68 159/65 H Blood Pressure [Left Brachial artery] Blood Pressure [Right Brachial artery] O2 Saturation 100 99 96 07/14/20 07/14/20 07/15/20 22:00 22:53 05:14 Temperature 37.1 C 37.1 C 36.9 C Heart Rate 83 Heart Rate [ 85 80 Brachial] Respiratory 17 18 18 Rate Blood Pressure 155/67 H Blood Pressure 157/50 H 130/70 [Left Brachial artery] Blood Pressure [Right Brachial artery] O2 Saturation 99 95 96 07/15/20 07/15/20 07/15/20 07:53 10:23 10:31 Temperature 36.9 C 36.9 C 36.9 C Heart Rate 70 73 Heart Rate [ 74 Brachial] Respiratory 18 187 H 17 Rate Blood Pressure 126/58 L 120/56 L Blood Pressure [Left Brachial artery] Blood Pressure 132/52 H [Right Brachial artery] O2 Saturation 96 07/15/20 07/15/20 07/15/20 10:41 11:45 12:37 Temperature 36.9 C 36.9 C 36.9 C Heart Rate 69 82 Heart Rate [ 72 Brachial] Respiratory 18 18 18 Rate Blood Pressure 121/73 134/94 H Blood Pressure [Left Brachial artery] Blood Pressure 146/74 H [Right Brachial artery] O2 Saturation 96 97 07/15/20 12:40 Temperature 36.9 C Heart Rate 71 Heart Rate [ Brachial] Respiratory 18 Rate Blood Pressure 146/74 H Blood Pressure [Left Brachial artery] Blood Pressure [Right Brachial artery] O2 Saturation Oxygen O2 Source Room air I&O (Last 24 Hrs): Intake and Output Totals x24h 07/13/20 07/14/20 07/15/20 23:59 23:59 23:59 Intake Total 100 955.417 Balance 100 955.417 General: Alert, Cooperative, No acute distress HEENT: Atraumatic Neck: Supple Lymphatic: no adenopathy Neuro: Alert, Non Focal Cardiovascular: Regular rate, Normal S1 Respiratory: Chest non-tender, No respiratory distress Abdomen: Normal bowel sounds, Soft, Other (pt report she feel pain in the deep palpitation at upper middle of abdomen. pt has no Hughes sign.) Extremities: Normal pulses - Results Results: Laboratory Results WBC 10.4 x10^3/uL (4.8-10.8) 07/15/20 05:20 RBC 2.37 10^6/uL (4.20-5.40) L 07/15/20 10:16 Hgb 7.0 g/dL (12.0-16.0) L* 07/15/20 05:20 Hct 22.8 % (37.0-47.0) L 07/15/20 05:20 MCV 101.8 fL (81.0-99.0) H 07/15/20 05:20 MCH 31.3 pg (27.0-31.0) H 07/15/20 05:20 MCHC 30.7 g/dL (32.0-36.0) L 07/15/20 05:20 RDW 13.5 % (12.0-15.0) 07/15/20 05:20 Plt Count 444 10^3/uL (130-450) 07/15/20 05:20 MPV 9.7 fL (7.9-10.8) 07/15/20 05:20 Reticulocyte % (Auto) 5.47 % (0.5-2.3) H 07/15/20 10:16 Neut # (Auto) 7.5 10^3/uL (1.5-6.6) H 07/14/20 19:38 Lymph # (Auto) 1.3 10^3/uL (1.5-3.5) L 07/14/20 19:38 [place] # (Auto) 0.7 10^3/uL (0.0-1.0) 07/14/20 19:38 Eos # (Auto) 0.1 10^3/uL (0.0-0.7) 07/14/20 19:38 Baso # (Auto) 0.1 10^3/uL (0.0-0.1) 07/14/20 19:38 Absolute Nucleated RBC 0.00 x10^3/uL 07/14/20 19:38 Nucleated RBC % 0.0 /100WBC 07/14/20 19:38 Absolute Retic 0.130 10^6/uL (0.020-0.110) H 07/15/20 10:16 Sodium 138 mmol/L (135-145) 07/15/20 05:20 Potassium 4.1 mmol/L (3.5-5.0) 07/15/20 05:20 Chloride 101 mmol/L (101-111) 07/15/20 05:20 Carbon Dioxide 26 mmol/L (21-32) 07/15/20 05:20 Anion Gap 11.0 (6-13) 07/15/20 05:20 BUN 20 mg/dL (6-20) 07/15/20 05:20 Creatinine 1.0 mg/dL (0.4-1.0) 07/15/20 05:20 Estimated GFR (MDRD) 54 (>89) L 07/15/20 05:20 Glucose 115 mg/dL (70-100) H 07/15/20 05:20 Lactic Acid 1.0 mmol/L (0.5-2.2) 07/14/20 21:37 Calcium 9.5 mg/dL (8.5-10.3) 07/15/20 05:20 Iron 25 ug/dL (28-170) L 07/14/20 19:38 TIBC 319 ug/dL (250-450) 07/14/20 19:38 % Saturation 8 % (20-50) L 07/14/20 19:38 Transferrin 228 mg/dL (192-382) 07/14/20 19:38 Ferritin 22.3 ng/mL (11.0-306.8) 07/14/20 19:38 Total Bilirubin 0.3 mg/dL (0.2-1.0) 07/14/20 19:38 AST 18 IU/L (10-42) 07/14/20 19:38 ALT 21 IU/L (10-60) 07/14/20 19:38 Alkaline Phosphatase 78 IU/L (42-121) 07/14/20 19:38 Total Protein 7.3 g/dL (6.7-8.2) 07/14/20 19:38 Albumin 3.7 g/dL (3.2-5.5) 07/14/20 19:38 Globulin 3.6 g/dL (2.1-4.2) 07/14/20 19:38 Albumin/Globulin Ratio 1.0 (1.0-2.2) 07/14/20 19:38 Lipase 150 U/L (22-51) H 07/14/20 19:38 Vitamin B12 514 pg/mL (180-914) 07/14/20 19:38 Urine Color YELLOW 07/14/20 20:01 Urine Clarity HAZY (CLEAR) 07/14/20 20:01 Urine pH 7.0 PH (5.0-7.5) 07/14/20 20:01 Ur Specific [place] 1.015 (1.002-1.030) 07/14/20 20:01 Urine Protein NEGATIVE mg/dL (NEGATIVE) 07/14/20 20:01 Urine Glucose (UA) NEGATIVE mg/dL (NEGATIVE) 07/14/20 20:01 Urine Ketones NEGATIVE mg/dL (NEGATIVE) 07/14/20 20:01 Urine Occult Blood NEGATIVE (NEGATIVE) 07/14/20 20:01 Urine Nitrite NEGATIVE (NEGATIVE) 07/14/20 20:01 Urine Bilirubin NEGATIVE (NEGATIVE) 07/14/20 20:01 Urine Urobilinogen 0.2 (NORMAL) E.U./dL (NORMAL) 07/14/20 20:01 Ur Leukocyte Esterase TRACE (NEGATIVE) H 07/14/20 20:01 Urine RBC 0-5 /HPF (0-5) 07/14/20 20:01 Urine WBC 6-10 /HPF (0-5) H 07/14/20 20:01 Ur Squamous Epith Cells NONE SEEN (<= Few) 07/14/20 20:01 Amorphous Sediment Few /LPF 07/14/20 20:01 Urine Bacteria Rare /HPF (None Seen) 07/14/20 20:01 Ur Microscopic Review INDICATED 07/14/20 20:01 Urine Culture Comments INDICATED 07/14/20 20:01 Nasal Adenovirus (PCR) NOT DETECTED 07/14/20 20:58 Nasal B. parapertussis DNA (PCR) NOT DETECTED 07/14/20 20:58 Nasal Coronavir 229E PCR NOT DETECTED 07/14/20 20:58 Nasal Coronavir HKU1 PCR NOT DETECTED 07/14/20 20:58 Nasal Coronavir NL63 PCR NOT DETECTED 07/14/20 20:58 Nasal Coronavir OC43 PCR NOT DETECTED 07/14/20 20:58 Nasal Enterovir/Rhinovir PCR NOT DETECTED 07/14/20 20:58 Nasal Influenza B PCR NOT DETECTED 07/14/20 20:58 Nasal Influenza A PCR NOT DETECTED 07/14/20 20:58 Nasal Parainfluen 1 PCR NOT DETECTED 07/14/20 20:58 Nasal Parainfluen 2 PCR NOT DETECTED 07/14/20 20:58 Nasal Parainfluen 3 PCR NOT DETECTED 07/14/20 20:58 Nasal Parainfluen 4 PCR NOT DETECTED 07/14/20 20:58 Nasal RSV (PCR) NOT DETECTED 07/14/20 20:58 Nasal B.pertussis DNA PCR NOT DETECTED 07/14/20 20:58 Nasal C.pneumoniae (PCR) NOT DETECTED 07/14/20 20:58 Ramin Human Metapneumo PCR NOT DETECTED 07/14/20 20:58 Nasal M.pneumoniae (PCR) NOT DETECTED 07/14/20 20:58 Nasal SARS-CoV-2 (PCR) NOT DETECTED 07/14/20 20:58 Stl Occult Blood (IFOB) NEGATIVE (NEGATIVE) 07/15/20 09:30 Blood Type O POSITIVE 07/15/20 05:36 Blood Type Recheck O POSITIVE 07/15/20 05:20 Antibody Screen NEGATIVE 07/15/20 05:36 Crossmatch IS Only See Detail 07/15/20 05:36 Sepsis Event Note (H) - Evaluation Current Stage of Sepsis: Ruled out ABX Reporting Has patient been on IV antibiotics over the past 48 hours?: Yes Current Medications - Current Medications Current Medications: Active Medications Acetaminophen (Acetaminophen 325 Mg Tablet) 650 mg PO Q4HR PRN PRN Reason: Pain 1 to 4 Hydrocodone Bitart/Acetaminophen (Hydrocod/Acetam 5/325 Mg Tablet) 1 tab PO Q4HR PRN PRN Reason: Pain 5 to 7 Ferrous Sulfate (Ferrous Sulfate 325 Mg Tablet) 325 mg PO DAILYWM [facility] Last Admin: 07/15/20 12:01 Dose: 325 mg Documented by: Hydromorphone HCl (Hydromorphone 1 Mg/Ml Carpuject) 1 mg IVP Q2H PRN PRN Reason: Pain 8 to 10 Sodium Chloride (Normal Saline 0.9%) 1,000 mls @ 83.3 mls/hr IV .Q12H1M [facility] Stop: 07/16/20 08:24 Last Infusion: 07/15/20 12:57 Dose: 83.3 mls/hr Documented by: Isosorbide Mononitrate (Isosorbide Mononitrate Er 30 Mg Tablet) 30 mg PO DAILY [facility] Metoprolol Succinate (Metoprolol Succinate 25 Mg Tablet) 25 mg PO DAILY [facility] Last Admin: 07/15/20 08:58 Dose: 25 mg Documented by: Metoprolol Succinate (Metoprolol Succinate 25 Mg Tablet) 25 mg PO DAILY [facility] Multi-Ingredient Mouthwash/Gargle (Gi Cocktail 120 Ml Bottle) 30 ml PO Q4H PRN PRN Reason: Abdominal Pain Non-Formulary Medication (Simvastatin [Zocor]) 40 mg PO DAILY [facility] Ondansetron HCl (Ondansetron 4 Mg/2 Ml Vial) 4 mg IVP Q6HR PRN PRN Reason: Nausea / Vomiting Pantoprazole Sodium (Pantoprazole 40 Mg Vial) 40 mg IV DAILY [facility] Last Admin: 07/15/20 08:58 Dose: 40 mg Documented by: Sodium Chloride (Sodium Chloride Flush 0.9% 10 Ml Syringe) 10 ml IVP PRN PRN PRN Reason: NEEDED PER PROVIDER ORDERS Last Admin: 07/14/20 23:01 Dose: 10 ml Documented by: Sodium Chloride (Sodium Chloride Flush 0.9% 10 Ml Syringe) 10 ml IVP 0100,0900,1700 [facility] Last Admin: 07/15/20 08:58 Dose: 10 ml Documented by: Ezetimibe [Zetia] 10 mg DAILY 07/04/20 HYDROcod/ACETAM 5/325 [[place] 5/325] 1 tab TID 07/04/20 Isosorbide Mononitrate ER [Imdur] 30 mg DAILY 07/04/20 Lisinopril [Prinivil] 10 mg PO DAILY 07/04/20 Simvastatin [Zocor] 40 mg DAILY 07/04/20 amLODIPine [Norvasc] 5 mg DAILY 07/04/20 Metoprolol Succinate [Toprol Xl] 25 mg PO DAILY 07/14/20
--- NOTE | 2020-07-15 14:21 | PHARMACY PROGRESS NOTE ---
- Best Possible Medication History Admit Date and Time: 07/14/202133 Processed by: Pharmacy Medication History completed: Yes Patient Interview: Pt unable to participate Secondary Source(s): Written medication list, Pharmacy records, Insurance rec ords Patient was confused and unable to say which medications she is currently taking. I called her spouse and asked him to bring in the patient's medication list when he came to the hospital today. Updated medication list based on written medication list and fill history. It looks like patient has a new prescription for metoprolol succinate from her last hospitalization but this has not been added to her home medication list so she likely has not started taking it yet. As the person ultimately responsible for medication therapy, providers are able to order a medication from an existing home medication list in [facility] via the "Reconcile Routine" prior to Confirmation of that medication by claims support specialist. Such practice is discouraged except when the physician, in their clinical judgment, deems that a medical need exists for a medication without regard to previous use.
--- NOTE | 2020-07-15 14:45 | ANESTHESIA ---
Pre-Anesthesia VS, & Labs - Diagnosis abdominal pain, anemia - Procedure EGD Vital Signs: Temp Pulse Resp BP Pulse Ox 36.9 C 71 18 146/74 H 97 07/15/20 12:40 07/15/20 12:40 07/15/20 12:40 07/15/20 12:40 07/15/20 12:37 Height: 5 ft Weight (kg): 56.5 kg Body Mass Index: 24.3 BMI Classification: Healthy weight - NPO >8 hours - Is Patient ?: No - Lab Results Current Lab Results: Laboratory Tests 07/15/20 13:53: Lactate Dehydrogenase 101 07/15/20 10:16: RBC 2.37 L, Reticulocyte % (Auto) 5.47 H, Absolute Retic 0.130 H 07/15/20 05:36: Blood Type O POSITIVE, Antibody Screen NEGATIVE, Crossmatch IS Only See Detail 07/15/20 05:20: Blood Type Recheck O POSITIVE 07/15/20 05:20: Sodium 138, Potassium 4.1, Chloride 101, Carbon Dioxide 26, Anion Gap 11.0, BUN 20, Creatinine 1.0, Estimated GFR (MDRD) 54 L, Glucose 115 H , Calcium 9.5 07/15/20 05:20: WBC 10.4, RBC 2.24 L, Hgb 7.0 L*, Hct 22.8 L, MCV 101.8 H, MCH 31.3 H, MCHC 30.7 L, RDW 13.5, Plt Count 444, MPV 9.7 07/14/20 21:37: Lactic Acid 1.0 07/14/20 19:38: Ferritin 22.3, Vitamin B12 514 07/14/20 19:38: Iron 25 L, TIBC 319, % Saturation 8 L, Transferrin 228 07/14/20 19:38: Sodium 140, Potassium 4.1, Chloride 101, Carbon Dioxide 27, Anion Gap 12.0, BUN 23 H, Creatinine 0.9, Estimated GFR (MDRD) 61 L, Glucose 117 H, Calcium 9.9, Total Bilirubin 0.3, AST 18, ALT 21, Alkaline Phosphatase 78, Total Protein 7.3, Albumin 3.7, Globulin 3.6, Albumin/Globulin Ratio 1.0, Lipase 150 H 07/14/20 19:38: WBC 9.7, RBC 2.33 L, Hgb 7.4 L, Hct 23.3 L, MCV 100.0 H, MCH 31.8 H, MCHC 31.8 L, RDW 13.3, Plt Count 506 H, MPV 9.8, Neut # (Auto) 7.5 H, Lymph # (Auto) 1.3 L, [place] # (Auto) 0.7, Eos # (Auto) 0.1, Baso # (Auto) 0.1, Absolute Nucleated RBC 0.00, Nucleated RBC % 0.0 Fish Bones: 07/15/20 05:20 07/15/20 05:20 Home Medications and Allergies Home Medications: Ambulatory Orders Metoprolol Succinate [Toprol Xl] 12.5 mg PO DAILY 07/14/20 Cholecalciferol (Vitamin D3) [Vitamin D3] 10 mcg PO DAILY 07/15/20 Multivitamin/Iron/Folic Acid [Centrum Adults Tablet] 1 tab PO DAILY 07/15/20 Sertraline HCl 100 mg PO DAILY 07/15/20 Vit C/E/Zn/Coppr/Lutein/Zeaxan [MetaPack Health Softgel] 1 cap PO BID 07/15/20 Active Medications Acetaminophen (Acetaminophen 325 Mg Tablet) 650 mg PO Q4HR PRN PRN Reason: Pain 1 to 4 Hydrocodone Bitart/Acetaminophen (Hydrocod/Acetam 5/325 Mg Tablet) 1 tab PO Q4HR PRN PRN Reason: Pain 5 to 7 Ferrous Sulfate (Ferrous Sulfate 325 Mg Tablet) 325 mg PO DAILYWM COUNTS INCLUDE 234 BEDS AT THE [facility] Last Admin: 07/15/20 12:01 Dose: 325 mg Documented by: Hydromorphone HCl (Hydromorphone 1 Mg/Ml Carpuject) 1 mg IVP Q2H PRN PRN Reason: Pain 8 to 10 Sodium Chloride (Normal Saline 0.9%) 1,000 mls @ 83.3 mls/hr IV .Q12H1M COUNTS INCLUDE 234 BEDS AT THE [facility] Stop: 07/16/20 08:24 Last Infusion: 07/15/20 12:57 Dose: 83.3 mls/hr Documented by: Multi-Ingredient Mouthwash/Gargle (Gi Cocktail 120 Ml Bottle) 30 ml PO Q4H PRN PRN Reason: Abdominal Pain Ondansetron HCl (Ondansetron 4 Mg/2 Ml Vial) 4 mg IVP Q6HR PRN PRN Reason: Nausea / Vomiting Pantoprazole Sodium (Pantoprazole 40 Mg Vial) 40 mg IV DAILY COUNTS INCLUDE 234 BEDS AT THE [facility] Last Admin: 07/15/20 08:58 Dose: 40 mg Documented by: Sodium Chloride (Sodium Chloride Flush 0.9% 10 Ml Syringe) 10 ml IVP PRN PRN PRN Reason: NEEDED PER PROVIDER ORDERS Last Admin: 07/14/20 23:01 Dose: 10 ml Documented by: Sodium Chloride (Sodium Chloride Flush 0.9% 10 Ml Syringe) 10 ml IVP 0100,0900,1700 COUNTS INCLUDE 234 BEDS AT THE [facility] Last Admin: 07/15/20 08:58 Dose: 10 ml Documented by: Ezetimibe [Zetia] 10 mg DAILY 07/04/20 HYDROcod/ACETAM 5/325 [[place] 5/325] 1 tab TID PRN 07/04/20 Isosorbide Mononitrate ER [Imdur] 30 mg DAILY 07/04/20 Lisinopril [Prinivil] 10 mg PO DAILY 07/04/20 Simvastatin [Zocor] 40 mg QPM 07/04/20 amLODIPine [Norvasc] 2.5 mg DAILY 07/04/20 Metoprolol Succinate [Toprol Xl] 12.5 mg PO DAILY 07/14/20 Cholecalciferol (Vitamin D3) [Vitamin D3] 10 mcg PO DAILY 07/15/20 Multivitamin/Iron/Folic Acid [Centrum Adults Tablet] 1 tab PO DAILY 07/15/20 Sertraline HCl 100 mg PO DAILY 07/15/20 Vit C/E/Zn/Coppr/Lutein/Zeaxan [MetaPack Health Softgel] 1 cap PO BID 07/15/20 Allergies/Adverse Reactions: Allergies Allergy/AdvReac Type Severity Reaction Status Date / Time No Known Drug Allergies Allergy Verified 07/14/20 19:29 Anes History & Medical History - Anesthetic History Anesthesia Complications: reports: No previous complications - Medical History Cardiovascular: reports: Hypertension, High cholesterol Gastrointestinal: reports: GERD Neuro: reports: Dementia Musculoskeletal: reports: Chronic back pain Smoking Status: Never smoker Psychosocial: reports: Depression History of Cancer?: No - Surgical History Neurologic: reports: Other Orthopedic: reports: Spine surgery Exam General: Alert Dental: WNL Mouth Opening: Greater than 4 Fingerbreadths Neck Mobility: Normal Mallampati classification: II Respiratory: Lungs clear Cardiovascular: Regular rate Cognitive Status: Dementia (mild) Plan Anesthesia Type: MAC, Total IV Consent for Procedure(s) Verified and Reviewed: Yes Code Status: Attempt Resuscitation ASA classification: 2-Mild systemic disease Is this case an emergency?: No
[2020-07-15 15:14] LABS: HCT - HEMATOCRIT 26.9 % (37.0-47.0); HGB - HEMOGLOBIN 8.5 g/dL (12.0-16.0)
[2020-07-15] MEDS ORDERED: PROPOFOL 200 MG/20 ML VIAL IVP ONE (15:25)
[2020-07-15] MEDS ORDERED: LIDOCAINE-MPF 2% 5 ML VIAL ONE (15:28)
--- NOTE | 2020-07-15 15:36 | SURGERY HX AND PHYSICAL(T) ---
Surgical History & Physical - Chief Complaint/HPI Chief Complaint: Abdominal pain and anemia History of Present Illness: 74-year-old female presenting for abdominal pain and imaging concerning for biliary colic/acute cholecystitis. Patient also with concerns for blood loss anemia. Notable past surgical history to include spine surgeries. No history of heart attack or stroke. Patient takes no systemic anticoagulation. Endoscopic history includes none reported. - PMH/PSH/Social Hx Neurological History: Dementia Cardiovascular: Hypertension, High cholesterol Gastrointestinal: GERD Musculoskeletal: Chronic back pain Orthopedic: Spine surgery Neurologic: Other Smoking Status: Never smoker Does the pt drink ETOH?: No Does the pt have substance abuse?: No - Home Meds and Allergies Home Medications: Ezetimibe [Zetia] 10 mg DAILY 07/04/20 HYDROcod/ACETAM 5/325 [[place] 5/325] 1 tab TID PRN 07/04/20 Isosorbide Mononitrate ER [Imdur] 30 mg DAILY 07/04/20 Lisinopril [Prinivil] 10 mg PO DAILY 07/04/20 Simvastatin [Zocor] 40 mg QPM 07/04/20 amLODIPine [Norvasc] 2.5 mg DAILY 07/04/20 Metoprolol Succinate [Toprol Xl] 12.5 mg PO DAILY 07/14/20 Cholecalciferol (Vitamin D3) [Vitamin D3] 10 mcg PO DAILY 07/15/20 Multivitamin/Iron/Folic Acid [Centrum Adults Tablet] 1 tab PO DAILY 07/15/20 Sertraline HCl 100 mg PO DAILY 07/15/20 Vit C/E/Zn/Coppr/Lutein/Zeaxan [coUrbanize Health Softgel] 1 cap PO BID 07/15/20 Allergies/Adverse Reactions: Allergies Allergy/AdvReac Type Severity Reaction Status Date / Time No Known Drug Allergies Allergy Verified 07/14/20 19:29 - Review of Systems Constitutional: Fever, Malaise Gastrointestinal: Nausea, Vomiting, Abdominal pain - Vital Signs Heart Rate: 71 Blood Pressure: 146/74 Temperature: 36.9 C Respiratory Rate: 18 O2 Saturation: 97 Weight (kg): 56.5 kg Height: 1.52 m - Physical Exam Comments/Other: General Appearance: positive: No acute distress Eyes Bilateral: positive: Normal inspection ENT: positive: ENT inspection nml Neck: positive: Nml inspection Respiratory: positive: Chest non-tender, No respiratory distress, Breath sounds nml. negative: Wheezes, Rales, Rhonchi Cardiovascular: positive: Regular rate & rhythm Abdomen: positive: No distention, Other. negative: Guarding, Rebound Extremities: positive: Non-tender, Full ROM, Nml appearance Neurologic/Psychiatric: positive: Oriented x3, CN's nml (2-12) - Patient Review Patient Review: Problems were reviewed with the patient during this visit. Medications were reviewed with the patient during this visit. Allergies were reviewed this patient during this visit. Pertinent Tests Reviewed: All pertitent test for this patient were reviewed. - Assessment & Plan Assessment and Plan: 74-year-old female presenting with abdominal pain longstanding since moving to [facility]. History of multiple spine surgeries. Presents with concerns for acute cholecystitis/biliary colic. However the patient on routine hematolog ic work-up reveals blood loss anemia. Does not recall last upper or lower endoscopy. Before proceeding with any surgical intervention for her acute cholecystitis, we will need to work-up for her anemia to include upper and lower endoscopy. Hemoglobin hematocrit at the time of admission is 7/22.8. Transfused a single unit of packed red blood cells. See imaging results per below. 1. Care per hospitalist service 2. Trend H&H and transfuse appropriately 3. Telemetry and close hemodynamic monitoring 4. Plan upper endoscopy to evaluate source. Will proceed with colonoscopy as well If upper endoscopy is unremarkable, patient will necessitate bowel prep. 5. Aggressive resuscitation 6. Will discuss cholecystectomy and treatment of her biliary colic once anemia work-up is complete; continue antibiotics. Surgical interventions and/or transfer for advanced gastrointestinal interventions and/or interventional radiographic interventions remain part of this complex algorithm. 7. Bowel rest and bowel prep in anticipation of colonoscopy 8. PPI infusion and consider Carafate pending results Abdominal CT impression: 1. Sludge material and stones are seen in the dependent portion of gallbladder lumen with gallbladder wall thickening and pericholecystic fluid concerning for acute cholecystitis. No biliary ductal dilatation. 2. Wall thickening involving distal portion of the stomach and proximal to mid portion of duodenum adjacent to the inflamed appearing gallbladder most likely representing reactive inflammatory changes. Low-grade gastritis and enteritis cannot be excluded. No other areas of abnormal bowel wall thickening no free fluid or free air. No abscess. 3. No renal stones or hydronephrosis 4. Right lateral abdominal wall defect containing fat only Abdominal ultrasound impression: 1. Cholelithiasis, no sign of acute cholecystitis at this time. Biliary distention is not found
--- NOTE | 2020-07-15 16:05 | ANESTHESIA POST OP EVALUATION ---
Anesthesia Post Eval - Post Anesthesia Eval Vitals: Last Vital Signs Temp 36.9 C 07/15/20 15:39 Pulse 71 07/15/20 15:39 Resp 18 07/15/20 15:39 BP 146/74 H 07/15/20 15:39 Pulse Ox 97 07/15/20 15:39 CV Function Including HR & BP: Stable Pain Control: Satisfactory Nausea & Vomiting: Negative Mental Status: Baseline Respiratory Status: Airway Patent Hydration Status: Satisfactory Anesthesia Complications: None
--- NOTE | 2020-07-15 16:08 | PROVIDER PROGRESS NOTE ---
Progress Note 74-year-old female with presumptive diagnosis by imaging of acute cholecystitis. Gastric and duodenal wall thickening suspected secondary to biliary process. Patient admitted with acute blood loss anemia. Abdominal pain. Poor p.o. intake. Anorexia. Patient status post upper endoscopy. See endoscopic findings from esophagoga stroduodenoscopy as per below: 1. Second portion of duodenum normal. No evidence of of duodenitis. Cold forcep biopsy obtained. Hemostatic. 2. First portion of duodenum with large semicircumferential approximately one third ulcerated area. No active bleeding however stigmata of recent bleeding with clot. Biopsied at the periphery and at the base. Unclear if this is potential malignancy thus multiply biopsied. No bleeding. Cold forceps. Hemostatic. 3. Antrum with evidence of antritis. Biopsies obtained cold forceps. Hemostatic. Patent pylorus. 4. Retroflexion with small hiatal herniation. 5. No diffuse gastritis or gastropathy. No polyps. No ulcerations. 6. GE junction with mild inflammatory changes and irregular Z-line. Biopsied. 7. Distal esophageal biopsies above the Z-line to rule out metaplasia. Assessment and plan: 74-year-old female with clear evidence of bleeding diathesis in the setting of a large postpyloric duodenal ulceration one third circumferential. This is clearly the cause of the patient's acute on chronic blood loss anemia, the inflammatory changes noted on imaging notably on CAT scan where there was gastric and small bowel wall thickening. This does not appear to be as evidenced by the normal LFTs and ultrasound a primary biliary process. Patient does not indeed need antibiotics. Would recommend proton pump inhibition twice daily after induction and Carafate 1 g 4 times daily. Bowel rest. Transfuse as necessary. Will need repeat upper endoscopy 2 to 3 months.
[2020-07-15] MEDS ORDERED: SACCHAROMYCES BOULARDII 250 MG CAPSULE PO SCH (17:00)
[2020-07-15] MEDS: SODIUM CHLORIDE FLUSH 0.9% 10 ML SYRINGE IVP PRN (21:10)
[2020-07-15] MEDS: PANTOPRAZOLE 40 MG VIAL IV SCH (21:10)
[2020-07-15] MEDS: SUCRALFATE 1 GM/10 ML UDC PO SCH (21:10)
[2020-07-15 22:08] LABS: HGB - HEMOGLOBIN 8.3 g/dL (12.0-16.0)
[2020-07-16 05:18] LABS: HCT - HEMATOCRIT 30.4 % (37.0-47.0); HGB - HEMOGLOBIN 9.5 g/dL (12.0-16.0); MEAN CORPUSCULAR HEMOGLOBIN 30.3 pg (27.0-31.0); MEAN CORPUSCULAR HGB CONC 31.3 g/dL (32.0-36.0); MEAN CORPUSCULAR VOLUME 96.8 fL (81.0-99.0); RED BLOOD COUNT 3.14 10^6/uL (4.20-5.40); RED CELL DISTRIBUTION WIDTH 16.5 % (12.0-15.0)
[2020-07-16 05:23] LABS: CALCIUM 9.3 mg/dL (8.5-10.3); CREATININE 0.8 mg/dL (0.4-1.0); POTASSIUM 3.7 mmol/L (3.5-5.0)
[2020-07-16] MEDS: SUCRALFATE 1 GM/10 ML UDC PO SCH ×2 (06:03→11:27)
[2020-07-16] MEDS: PANTOPRAZOLE 40 MG VIAL IV SCH (08:02)
[2020-07-16] MEDS: SODIUM CHLORIDE FLUSH 0.9% 10 ML SYRINGE IVP SCH (08:03)
[2020-07-16] MEDS: FERROUS SULFATE 325 MG TABLET PO SCH (08:03)
[2020-07-16] MEDS ORDERED: ISOSORBIDE MONONITRATE ER 30 MG TABLET PO SCH (09:00)
[2020-07-16] MEDS ORDERED: NON FORMULARY MED (Simvastatin [Zocor] 40 MG Tablet) PO SCH (09:00)
[2020-07-16] MEDS ORDERED: FERROUS SULFATE 325 MG TABLET PO SCH (10:02)
--- NOTE | 2020-07-16 11:30 | Discharge Plan ---
Discharge Plan Problem Reviewed?: Yes Disposition: Home, Self Care Condition: Stable Prescriptions: Sucralfate [Carafate] 1 tablet PO ACHS #60 tablet Ferrous Sulfate [Feosol] 325 mg PO QDLUNCH #30 tablet Omeprazole 40 mg PO BID #60 cap Diet: Soft Activity Restrictions: Activity as Tolerated Shower Restrictions: No (fall precaution) Instruction Topics: Sucralfate tablets, Omeprazole tablets OTC, Gastric Duodenal Ulcer [facility] Concerns: duodenum ulcer Plan of Treatment: Discussed the care plan with your son Yovany by phone. you have no pain and you tolerated the diet. you are prescribed two new medications Omeprazole and carafate to help the healing of your duodenum ulcer, you may hold NSAIDs such as Ibuprofen and aspirin. Surgeon did biopsy for your ulcer, the result is pending, they will contact you with the result. You may followup with your surgeon in 4-6 weeks to check the healing of your duodenum ulcer. Surgeon phone is [phone]. You may followup with your PCP in one week to monitor your HGB level. Care Goals: stabilization and improvement of your medical conditions Assessment: discussed the care plan with your son Yovany, answered his question, he understood. Additional Instructions or Follow Up instructions: You may followup with your PCP in one week, and monitor your HGB level. You may followup with your GI surgeon in 4-6 weeks to monitor the healing of your gastric ulcer. Should yours symptoms return or worsen, you may present ER or call 911 for help. No Smoking: If you smoke, Please STOP! Call for help. Follow-up with: Brendon Jiménez [Primary Care Provider] -
--- NOTE | 2020-07-16 11:48 | DISCHARGE SUMMARY ---
Discharge Summary Admit Date: 07/14/20 Discharge Date: 07/16/20 Discharging Provider: Adryan Gutierrez Primary Care Provider: Ronnell Limon Condition at Discharge: Stable Discharge Disposition: 01 Home, Self Care Discharge Facility Name: home - DIAGNOSES Discharge Diagnoses with Status of Each Condition: (1) Abdominal pain Resolved, patient has no abdominal pain on today, patient tolerated regular diet. Patient's imaging study including ultrasound Of abdomen, CT Of abdomen and pelvis, EGD done by GI surgeon, And the patient clinical presentation, All does not indicate patient has acute systolic cholecystitis. Patient has no fever, WBC is normal, patient has no more abdominal pain. Patient had a EGD done by GI surgeon Which she was found a large duodenal ulcer which likely cause pt's acute blood loss per GI surgeon's report. This result was discussed with patient and patient's son Yovany by the phone. Patient's biopsy is pending. Patient is prescripted PPI and Carafate, Advised the patient hold NSAID including ibuprofen and aspirin. Follow-up GI surgeon in 4 to 6-week to check the ulcer healing (2) Anemia stable and increased significantly. Patient had a 1 unit blood transfusion in the hospital. pt Is also found to have iron deficiency, patient is prescribed iron. (3) HTN (hypertension) stable, will resume her home meds (4) HLD (hyperlipidemia) resume home meds - [facility] History of Present Illness: refer from Dov Mancilla's HPI on 07/14/20. Linda is a very pleasant 74-year-old female with mild dementia, and presumably some cardiac history including hypertension and possibly angina based on her medication list, but is unable to provide much history, who is at least able to tell me that she presents to the ED with abdominal pain since the past 2 days. She is unable to characterize the abdominal pain very much in terms of quality, location, exacerbating and alleviating factors, or severity. This is somewhat limited by her dementia. She does however clearly confirm when asked that she has had vomiting though she denies any recollection of coffee-ground emesis, or black. She also denies any melena or bright red blood per rectum. She does not think she is had a fever. She has not had any other associated symptoms. She states this has never happened to her before. ED course: In the emergency department she was evaluated for the symptoms including labs and a CT scan of the abdomen and pelvis that was suggestive of acute cholecystitis with lab work showing mild anemia with hemoglobin of 7.6, with macrocytosis, normal RDW, normal renal function, and no leukocytosis. Her u rinalysis is also suggestive of a UTI. Her vital signs were stable in the ED. Upon arrival to examine the patient, she was found to be undergoing abdominal sonography. General surgery had been contacted prior to my involvement, who has kindly agreed to consult on the patient and suggest a probable EGD, colonoscopy, as well as possible laparoscopic cholecystectomy for the acute cholecystitis bas ed on ultrasound results. - HOSPITAL COURSE Hospital Course: Patient was admitted for abdominal pain, patient was also found severe anemia, hemoglobin was 7.0. Ultrasound of abdomen indicate no acute cholecystitis. Patient has no Hughes sign in clinically. Patient had 1 unit of blood transfusion. Patient was treated with intravenous PPI And the bowel rest. P atient had a EGD done by surgeon which Found patient had a large duodenal ulcer, It is likely to cause patient had severe anemia. After the patient was treated in the hospital, patient has no more abdominal pain, patient tolerated regular diet. All imaging study and the care plan was discussed with patient and patient's son Yovany by the phone. - ALLERGIES Allergies/Adverse Reactions: Allergies Allergy/AdvReac Type Severity Reaction Status Date / Time No Known Drug Allergies Allergy Verified 07/14/20 19:29 - MEDICATIONS Home Medications: Ambulatory Orders Medication Instructions Recorded Confirmed Ezetimibe [Zetia] 10 mg DAILY 07/04/20 07/14/20 HYDROcod/ACETAM 5/325 [[place] 5/325] 1 tab TID PRN 07/04/20 07/14/20 Isosorbide Mononitrate ER [Imdur] 30 mg DAILY 07/04/20 07/14/20 Lisinopril [Prinivil] 10 mg PO DAILY 07/04/20 07/14/20 Simvastatin [Zocor] 40 mg QPM 07/04/20 07/15/20 amLODIPine [Norvasc] 2.5 mg DAILY 07/04/20 07/15/20 Metoprolol Succinate [Toprol Xl] 12.5 mg PO DAILY 07/14/20 07/15/20 Cholecalciferol (Vitamin D3) 10 mcg PO DAILY 07/15/20 07/15/20 [Vitamin D3] Multivitamin/Iron/Folic Acid 1 tab PO DAILY 07/15/20 07/15/20 [Centrum Adults Tablet] Sertraline HCl 100 mg PO DAILY 07/15/20 07/15/20 Vit C/E/Zn/Coppr/Lutein/Zeaxan 1 cap PO BID 07/15/20 07/15/20 [[facility]Path [employer] [facility] Softgel] Ferrous Sulfate [Feosol] 325 mg PO QDLUNCH #30 tablet 07/16/20 Omeprazole 40 mg PO BID #60 cap 07/16/20 Sucralfate [Carafate] 1 tablet PO ACHS #60 tablet 07/16/20 - PHYSICAL EXAM AT DISCHARGE General Appearance: positive: No acute distress, Alert. negative: Lethargic Eyes Bilateral: positive: Normal inspection, PERRL, No lid inflammation ENT: positive: ENT inspection nml, No signs of dehydration. negative: Purulent nasal drainage Neck: positive: Nml inspection, Trachea midline. negative: Thyromegaly, Tracheal deviation Respiratory: positive: Chest non-tender, No respiratory distress, Breath sounds nml. negative: Wheezes Cardiovascular: positive: Regular rate & rhythm, No murmur. negative: Tachycardia, Bradycardia, Systolic murmur, Diastolic murmur Peripheral Pulses: positive: 2+ Abdomen: positive: Non-tender, Nml bowel sounds, No distention. negative: Tenderness, Guarding Back: positive: Nml inspection Skin: positive: Color nml, Warm, Dry. negative: Cyanosis, Diaphoresis Extremities: positive: Non-tender, Full ROM, Nml appearance. negative: Calf tenderness Neurologic/Psychiatric: positive: Motor nml, Sensation nml, Mood/affect nml. negative: Weakness, Sensory loss, Facial droop, Slurred/abnml speech, Depressed mood/affect - LABS Result Diagrams: 07/16/20 04:30 07/16/20 04:30 - SEPSIS Current Stage of Sepsis: Ruled out - FOLLOW UP Follow Up: Discussed the care plan with your son Yovany by phone. you have no pain and you tolerated the diet. you are prescribed two new medications Omeprazole and carafate to help the healing of your duodenum ulcer, you may hold NSAIDs such as Ibuprofen and aspirin. Surgeon did biopsy for your ulcer, the result is pending, they will contact you with the result. You may followup with your surgeon in 4-6 weeks to check the healing of your duodenum ulcer. Surgeon phone is [phone]. You may followup with your PCP in one week to monitor your HGB level. You may followup with your PCP in one week, and monitor your HGB level. You may followup with your GI surgeon in 4-6 weeks to monitor the healing of your gastric ulcer. Should yours symptoms return or worsen, you may present ER or call 911 for help. - TIME SPENT Time Spent in Discharge (Minutes): 30
[2020-07-16 13:22] VITALS: BP 167/66
== END 2020-07-16 14:04 | disposition home or self-care (01) | DRG 378 ==
LOC: EDUNIT# → SUPCPDRO 19:24 → ED 19:24 → MS2 21:34
PROVIDERS: ADMIT Family Medicine Sports Medicine; ATTEND Nurse Practitioner Gerontology
PROC: 0DB78ZX Excision of Stomach, Pylorus, Via Natural or Artificial Opening Endoscopic, Diagnostic (ICD-10-PCS; 2020-07-15)
PROC: 0DB38ZX Excision of Lower Esophagus, Via Natural or Artificial Opening Endoscopic, Diagnostic (ICD-10-PCS; 2020-07-15)
PROC: 0DB48ZX Excision of Esophagogastric Junction, Via Natural or Artificial Opening Endoscopic, Diagnostic (ICD-10-PCS; 2020-07-15)
PROC: 30233N1 Transfusion of Nonautologous Red Blood Cells into Peripheral Vein, Percutaneous Approach (ICD-10-PCS; 2020-07-15)
PROC: 0DB98ZX Excision of Duodenum, Via Natural or Artificial Opening Endoscopic, Diagnostic (ICD-10-PCS; principal; 2020-07-15 15:00)
DX: K80.00 Calculus of gallbladder with acute cholecystitis without obstruction (principal); D64.9 Anemia, unspecified; K26.4 Chronic or unspecified duodenal ulcer with hemorrhage; D62 Acute posthemorrhagic anemia; I10 Essential (primary) hypertension; K29.60 Other gastritis without bleeding; K44.9 Diaphragmatic hernia without obstruction or gangrene; E78.00 Pure hypercholesterolemia, unspecified; Z20.822 Contact with and (suspected) exposure to COVID-19; F03.90 Unspecified dementia, unspecified severity, without behavioral disturbance, psychotic disturbance, mood disturbance, and anxiety; E78.5 Hyperlipidemia, unspecified; G89.29 Other chronic pain; M54.9 Dorsalgia, unspecified; F32.9 Major depressive disorder, single episode, unspecified; R63.0 Anorexia; Z66 Do not resuscitate; Z68.25 Body mass index [BMI] 25.0-25.9, adult; Z79.891 Long term (current) use of opiate analgesic; Z79.899 Other long term (current) drug therapy
CPT/HCPCS: 36415; 74177; 76705; 80048; 80053; 81001; 82274; 82607; 82728; 83540; 83605; 83615; 83690; 84466; 85014; 85018; 85025; 85027; 85045; 86850; 86900; 86901; 86920; 87040; 87086; 87631; 96374; 99284; 99285; A9270; P9016; Q9967; 0202U; 81003; 82272

== ENCOUNTER 2021-08-05 13:11 | Outpatient (CLI) | payer MEDICARE, OTHER ==
--- NOTE | 2021-08-05 14:58 | XRAY Report ---
PROCEDURE: Abdomen 1 View X-Ray INDICATIONS: LLQ ABDOMINAL PAIN TECHNIQUE: One view of the abdomen acquired. COMPARISON: None FINDINGS: Surgical changes and devices: None. Bowel: Bowel gas pattern is nonspecific. Soft tissues: No suspicious abdominal calcifications. Visualized solid organ contours appear normal in size. Bones: No suspicious bony lesions. L3-L5 fixation hardware. IMPRESSION: Nonspecific bowel gas pattern without definite evidence of obstruction. If patient's symptoms persist or worsen, consider CT scan of the abdomen and pelvis for additional evaluation Reviewed by: Lynette Crisostomo MD, PhD on 08/05/2021 2:56 PM PDT Approved by: Lynette Crisostomo MD, PhD on 08/05/2021 2:56 PM PDT Station ID: [id number]
== END 2021-08-05 13:12 | disposition home or self-care (01) ==
LOC: DI 13:11
PROVIDERS: ATTEND Family Medicine
DX: R10.32 Left lower quadrant pain (principal)

== ENCOUNTER 2021-08-30 02:18 | Outpatient (CLI) | payer MEDICARE, OTHER | END 2021-08-30 02:19 | disposition short-term general hospital (02) | LOC: EMS 02:18 | DX: R10.11 Right upper quadrant pain (principal); K59.00 Constipation, unspecified | CPT/HCPCS: A0425; A0427 ==